=== PATIENT | female | born 1960 | race Caucasian/White ===

== ENCOUNTER 2017-02-25 09:26 | Outpatient (CLI) | payer OTHER ==
[2017-02-25 11:00] LABS: #Basophils 0.1 thou/uL (0.0-0.2); #Eosinphils 0.5 thou/uL (0.0-0.7); #Lymphocytes 1.9 thou/uL (1.20-3.40); #Monocytes 0.9 thou/uL (0.11-0.59); #Neutrophils 6.8 thou/uL (1.40-6.50); %Basophils 0.8 % (0.0-1.0); %Eosinophils 4.7 % (0.0-10.0); %Lymphocytes 18.6 % (21.0-51.0); %Monocytes 8.5 % (0.0-10.0); %Neutrophils 67.4 % (42.0-75.0); ALT (SGPT) 14 U/L (0-55); AST (SGOT) 14 U/L (5-34); Albumin 3.9 g/dL (3.5-5.0); Alkaline Phosphatase 101 U/L (40-150); Anion Gap 10 mmol/L (10-20); BUN (Urea Nitrogen) 13 mg/dL (9.8-20.1); Bilirubin, Total 0.4 mg/dL (0.2-1.2); Calc. Creatinine Clearance 0 mL/min (70-130); Calcium 9.3 mg/dL (7.8-10.44); Carbon Dioxide 29 mmol/L (22-29); Cardiac Risk 3.3 (Less than 4.5); Chloride 107 mmol/L (98-107); Cholesterol 149 mg/dL (< 200 Desired); Estimated GFR-MDRD Greater than 90; Globulin 2.1 g/dL (2.4-3.5); Glucose 122 mg/dL (70-105); HDL Cholesterol 45 mg/dL (>60 Neg Risk); Hemoglobin 14.3 g/dL (12.0-16.0); LDL Cholesterol, Calculated 81 mg/dL; Mean Corpuscular HGB CONC 31.7 g/dL (32.0-36.0); Mean Corpuscular Volume 91.3 fl (81.0-99.0); Mean Platelet Volume 7.8 fL (7.4-10.4); Platelet Count 236 thou/uL (130-400); Potassium 4.3 mmol/L (3.5-5.1); Red Blood Cell (RBC) Count 4.93 mill/uL (4.20-5.40); Sodium 142 mmol/L (136-145); Triglycerides 116 mg/dL (Less than 150); White Blood Cell (WBC) Count 10.1 thou/uL (4.8-10.8)
[2017-02-25 13:12] LABS: Hemoglobin A1c 6.1 % (4.0-6.0)
== END 2017-02-25 09:27 | disposition home or self-care (01) ==
LOC: HPCALD 09:26
PROVIDERS: ATTEND Family Medicine
DX: E78.5 Hyperlipidemia, unspecified (principal); E11.9 Type 2 diabetes mellitus without complications; I10 Essential (primary) hypertension
CPT/HCPCS: 36415; 80053; 80061; 83036; 85025

== ENCOUNTER 2018-09-08 15:52 | Outpatient (CLI) | payer OTHER ==
--- NOTE | 2018-09-08 17:50 | RAD ---
RIGHT KNEE FOUR VIEWS: 09/08/18 INDICATION: Right knee pain. COMPARISON: None. FINDINGS: There is prominent marginal osteophytes affecting all major compartments of the right knee. There is some expected vacuum disc phenomenon within the medial femorotibial joint compartment. There is moder ate medial femorotibial joint compartment narrowing. IMPRESSION: Moderate to severe osteoarthrosis of the right knee. POS: [facility]
--- NOTE | 2018-09-08 17:53 | RAD ---
TWO VIEWS OF THE RIGHT SHOULDER: 09/08/18 COMPARISON: None. HISTORY: Chronic right shoulder pain. FINDINGS: Two views of the right shoulder shows no evidence of acute fracture or dislocation. Moderate degenera tive changes are seen in the glenohumeral joint. The visualized right thorax is unremarkable. IMPRESSION: Moderate right shoulder osteoarthritis without acute osseous abnormality. POS: [facility]
== END 2018-09-08 15:53 | disposition home or self-care (01) ==
LOC: BURRAD 15:52
PROVIDERS: ATTEND Family Medicine
DX: M25.561 Pain in right knee (principal); M25.511 Pain in right shoulder; M19.011 Primary osteoarthritis, right shoulder; M17.11 Unilateral primary osteoarthritis, right knee

== ENCOUNTER 2019-07-16 14:23 | Emergency (ER) | payer OTHER ==
[2019-07-16] MEDS ORDERED: HYDROcodone/Acetaminophen 10/325 mg Tablet ONE (14:43)
== END 2019-07-16 16:04 | disposition home or self-care (01) ==
LOC: BURERS 14:23
DX: S76.312A Strain of muscle, fascia and tendon of the posterior muscle group at thigh level, left thigh, initial encounter (principal); Z71.6 Tobacco abuse counseling; E11.9 Type 2 diabetes mellitus without complications; F17.210 Nicotine dependence, cigarettes, uncomplicated; F32.9 Major depressive disorder, single episode, unspecified; Z79.899 Other long term (current) drug therapy; Z79.84 Long term (current) use of oral hypoglycemic drugs; X50.9XXA Other and unspecified overexertion or strenuous movements or postures, initial encounter
CPT/HCPCS: 99406

== ENCOUNTER 2021-03-15 13:14 | Emergency (ER) | payer OTHER ==
[2021-03-15] MEDS ORDERED: Ondansetron PF 4 MG/2 ML Vial ONE (13:37)
[2021-03-15] MEDS ORDERED: cefTRIAXone\\ROCEPHIN 2 GM VIAL ONE (13:52)
[2021-03-15] MEDS ORDERED: methylPREDNISolone Sod Succ/PF 125 MG/2 ML VIAL ONE (13:52)
[2021-03-15] MEDS ORDERED: Azithromycin 500 MG VIAL ONE (13:52)
[2021-03-15 13:58] LABS: #Basophils 0.2 thou/uL (0.0-0.2); #Eosinphils 0.1 thou/uL (0.0-0.7); #Monocytes 0.7 thou/uL (0.11-0.59); #Neutrophils 3.7 thou/uL (1.40-6.50); %Basophils 2.3 % (0.0-1.0); %Eosinophils 1.9 % (0.0-10.0); %Monocytes 8.9 % (0.0-10.0); Hemoglobin 14.4 g/dL (12.0-16.0); Mean Corpuscular HGB CONC 32.5 g/dL (32.0-36.0); Mean Corpuscular Hemoglobin 28.4 pg (27.0-31.0); Mean Corpuscular Volume 87.2 fL (78.0-98.0); Mean Platelet Volume 7.6 fL (7.4-10.4); Platelet Count 220 thou/uL (130-400); RBC Distribution Width 12.5 % (11.5-14.5); Red Blood Cell (RBC) Count 5.08 mill/uL (4.20-5.40); White Blood Cell (WBC) Count 7.8 thou/uL (4.8-10.8)
[2021-03-15] MEDS ORDERED: Sodium Chloride 0.9% 200 ML ONE (13:58)
[2021-03-15 14:14] LABS: ALT (SGPT) 20 U/L (8-55); AST (SGOT) 18 U/L (5-34); Albumin 3.9 g/dL (3.5-5.0); Alkaline Phosphatase 126 U/L (40-110); Anion Gap 17 mmol/L (10-20); BUN (Urea Nitrogen) 10 mg/dL (9.8-20.1); Bilirubin, Total 0.6 mg/dL (0.2-1.2); CK (CPK) 30 U/L (29-168); Calc. Creatinine Clearance 0 mL/min (70-130); Calcium 9.6 mg/dL (7.8-10.44); Carbon Dioxide 22 mmol/L (22-29); Chloride 106 mmol/L (98-107); Globulin 3.4 g/dL (2.4-3.5); Glucose 288 mg/dL (70-105); Potassium 3.8 mmol/L (3.5-5.1); Protein, Total 7.3 g/dL (6.0-8.3); Sodium 141 mmol/L (136-145)
[2021-03-15] MEDS ORDERED: Albuterol Sulfate 2.5 mg/0.5 ml Neb ONE (14:44)
[2021-03-15] MEDS ORDERED: Albuterol Sulfate 2.5 mg/3 ml Neb ONE (14:52)
[2021-03-15] MEDS ORDERED: Aspirin 325 MG TAB ONE (18:30)
== END 2021-03-15 20:29 | disposition short-term general hospital (02) ==
LOC: BURERS 13:14
DX: R06.00 Dyspnea, unspecified (principal); R00.0 Tachycardia, unspecified; E11.9 Type 2 diabetes mellitus without complications; F17.210 Nicotine dependence, cigarettes, uncomplicated; Z79.84 Long term (current) use of oral hypoglycemic drugs
CPT/HCPCS: 36415; 71045; 71275; 80053; 82550; 83605; 83880; 84484; 85025; 87040; 93005; 94640; 96365; 96367; 96375; J0456; J0500; J0696; J2405; J2930; J3490; J7611; J7620

== ENCOUNTER 2021-09-25 10:53 | Outpatient (CLI) | payer OTHER | END 2021-09-25 10:54 | disposition home or self-care (01) | LOC: BURRAD 10:53 | PROVIDERS: ATTEND Family Medicine | DX: M54.50 Low back pain, unspecified (principal); M47.816 Spondylosis without myelopathy or radiculopathy, lumbar region | CPT/HCPCS: 72100 ==

== ENCOUNTER 2025-06-09 19:42 | Emergency (ER) | payer MEDICAID | END 2025-06-09 20:50 | disposition home or self-care (01) | LOC: BURERS 19:42 | DX: M25.561 Pain in right knee (principal); E11.65 Type 2 diabetes mellitus with hyperglycemia; Z87.891 Personal history of nicotine dependence | CPT/HCPCS: 36416; 96372; 99283; J1885 ==

== ENCOUNTER 2025-08-08 14:15 | Emergency (ER) | payer MEDICAID, OTHER ==
[2025-08-08] MEDS ORDERED: Lidocaine 1%/Epinephrine 1:100K 10 ML VIAL ONE (14:38)
== END 2025-08-08 14:55 | disposition home or self-care (01) ==
LOC: BURERS 14:15
DX: L02.212 Cutaneous abscess of back [any part, except buttock and flank] (principal); E11.9 Type 2 diabetes mellitus without complications; Z87.891 Personal history of nicotine dependence
CPT/HCPCS: 10060; 87070; 87205

== ENCOUNTER 2025-09-19 13:50 | Emergency (ER) | payer MEDICAID | END 2025-09-19 14:18 | disposition home or self-care (01) | LOC: BURERS 13:50 | DX: M26.602 Left temporomandibular joint disorder, unspecified (principal); E11.9 Type 2 diabetes mellitus without complications; Z87.891 Personal history of nicotine dependence | CPT/HCPCS: 99282 ==